=== PATIENT | male | born 1945 | race African-American/Black ===

== ENCOUNTER 2025-02-28 19:35 | Inpatient (IN) | payer OTHER ==
[2025-02-28] MEDS ORDERED: ASPIRIN 81 MG CHEWABLE TABLETS ONE (21:00)
[2025-02-28] MEDS: ASPIRIN 81 MG CHEWABLE TABLETS PO ONE (21:04)
[2025-02-28 22:01] LABS: ABSOLUTE IMMATURE GRANULOCYTES 0.02 x10^3/uL (0.0-0.031); BASOPHILS # 0.04 x10^3/uL (0.01-0.08); EOSINOPHIL % 6.3 % (0.8-7.0); EOSINOPHILS # 0.47 x10^3/uL (0.04-0.54); MCHC 32.3 g/dl (32.3-36.5); MEAN CELL VOLUME 96.5 fl (79.0-92.2); MEAN PLT VOLUME 9.2 fl (9.4-12.4); MONOCYTE # 0.53 x10^3/uL (0.30-0.82); MONOCYTE % 7.1 % (5.3-12.2); RDW 13.2 % (12.2-16.6)
[2025-02-28 22:14] LABS: INR 1.05 (0.83-1.09); PROTHROMBIN TIME (PATIENT) 11.5 SEC (9.7-13.0)
[2025-02-28 22:16] LABS: ACTIVATED PTT 28.8 SECONDS (25.2-36.5)
[2025-02-28 22:48] LABS: CO2 25.0 mmol/L (21-32); GLUCOSE,RANDOM 94.0 mg/dL (74-106)
[2025-02-28 22:51] LABS: CREATININE 1.3 mg/dL (0.55-1.3); SGOT/AST 26.0 U/L (15-37); SGPT/ALT 31.0 U/L (13-61)
[2025-02-28 22:53] LABS: TOT PROT 7.1 g/dl (6.4-8.2)
[2025-02-28 22:54] LABS: ALK PHOS 116.0 U/L (45-117)
[2025-03-01 07:00] LABS: MCHC 33.1 g/dl (32.3-36.5); MEAN CELL VOLUME 96.0 fl (79.0-92.2); MEAN PLT VOLUME 9.5 fl (9.4-12.4); RDW 13.2 % (12.2-16.6)
[2025-03-01 07:25] LABS: CO2 25.0 mmol/L (21-32); GLUCOSE,RANDOM 78.0 mg/dL (74-106)
[2025-03-01 07:28] LABS: CREATININE 1.2 mg/dL (0.55-1.3); SGPT/ALT 27.0 U/L (13-61); TOT PROT 6.6 g/dl (6.4-8.2)
[2025-03-01 07:29] LABS: SGOT/AST 21.0 U/L (15-37)
[2025-03-01 07:30] LABS: ALK PHOS 101.0 U/L (45-117); LDL CHOLESTEROL (ONLY SJRH) 122.0 mg/dL (5-100)
[2025-03-01 09:15] VITALS: BMI 23.3
[2025-03-01] MEDS: ASPIRIN 81 MG CHEWABLE TABLETS PO SCH (10:12)
[2025-03-01] MEDS: TAMSULOSIN HCL 0.4 MG CAP PO SCH (10:12)
[2025-03-01] MEDS: ENOXAPARIN NA (PORCINE) 40 MG/0.4 ML DISP.SYRIN SQ SCH (10:12)
[2025-03-01] MEDS: ESCITALOPRAM OXALATE 20 MG TABLET PO SCH (10:13)
[2025-03-01] MEDS: MULTIVITAMINS (DAILY MVI) TABLET (FP) PO SCH (16:04)
[2025-03-01] MEDS: AMINO ACIDS/PROTEIN HYDROLYS 30 ML LIQUID.PKT PO SCH (17:25)
[2025-03-01] MEDS: ASCORBIC ACID 500 MG TABLET (FP) PO SCH (21:31)
[2025-03-01] MEDS: MIRTAZAPINE 15 MG TABLET (FP) PO SCH (21:31)
[2025-03-01] MEDS: ZINC OXIDE 20% TOPICAL OINTMENT 30 GM TUBE TP SCH (21:31)
[2025-03-01 23:25] VITALS: RESP 18
[2025-03-02 11:52] VITALS: BP 120/70; PULSE 58; TEMP 97.8
== END 2025-03-02 12:42 | DRG 198 ==
LOC: JER 19:35 → JERBED 23:08 → J4S 03-01 03:58
PROVIDERS: ADMIT Internal Medicine; ATTEND Nurse Practitioner Family
DX: I25.10 Atherosclerotic heart disease of native coronary artery without angina pectoris (principal); E11.9 Type 2 diabetes mellitus without complications; I10 Essential (primary) hypertension; E78.5 Hyperlipidemia, unspecified; F31.9 Bipolar disorder, unspecified; F03.90 Unspecified dementia, unspecified severity, without behavioral disturbance, psychotic disturbance, mood disturbance, and anxiety
CPT/HCPCS: 36415; 71046-TC-FY; 80053; 80061; 82962; 83036; 83735; 84100; 84484; 85025; 85027; 85610; 85730; 86850; 86900; 86901; 93005; 93010; 99285-25